=== PATIENT | female | born 2000 | race Caucasian/White ===

== ENCOUNTER 2022-11-12 17:37 | Emergency (ER) | payer BC ==
[~2022-11-12] VITALS: Ht 154.9 cm; Wt 46.2 kg
--- NOTE | 2022-11-12 18:34 | ED General ---
General Chief Complaint: General Problems/Pain Stated Complaint: LOW HEMO Nursing Triage Note: PT AMB TO TRIAGE WITH MOM WITH COMPLAINT OF LOW HGB. STATES WAS SENT BY [facility] FOR FURTHER WORK UP OF LOW HGB, BUT WAS NOT TOLD THE NUMBER. DENIES BLOOD IN STOOL, VOMITING BLOOD. Source of Information: Patient Exam Limitations: No Limitations History of Present Illness Date Seen by Provider: Nov 12, 2022 Time Seen by Provider: 18:30 Initial Comments Patient is a 22-year-old female presents ED with family for low hemoglobin. Patient was seen at [facility] yesterday for a routine checkup. Had lab work drawn. She states she was seen today for a follow-up and was recommended come to ED secondary to low hemoglobin. Patient has no current complaints such as fatigue, weakness, headache, abdominal pain, bloody stools, hematemesis. She is currently on control and states she does not have current menstrual cycles. No evidence of blood loss. No known blood disorders. She denies of any recent infection. Not on any current antibiotic use. History of hemorrhoids however she has no current rectal pain, anal pain or bloody stools. Patient denies fever weakness fatigue, headache, skin color changes Allergies and Home Medications Allergies Coded Allergies: azithromycin (Verified Allergy, Unknown, 11/12/22) oseltamivir (Verified Allergy, Unknown, 11/12/22) Patient Home Medication List Home Medication List Reviewed: Yes Review of Systems Review of Systems Constitutional: No chills, No diaphoresis, No fever, No malaise, No weakness EENTM: No ear pain, No blurred vision, No double vision, No hoarseness, No mouth pain, No mouth swelling Respiratory: No cough Cardiovascular: No palpitations Gastrointestinal: No abdominal pain, No diarrhea, No nausea, No vomiting Genitourinary: No decreased output, No discharge Musculoskeletal: No back pain, No joint pain Skin: No change in color, No change in hair/nails All Other Systems Reviewed Negative Unless Noted: Yes Past Cgufucp-[id number]-[id number] Hx Patient Social History Tobacco Use?: No Use of E-Cig and/or Vaping dev: No Substance use?: No Alcohol Use?: No Pt feels they are or have been: No Physical Exam Vital Signs Vital Signs - First Documented 11/12/22 17:49 Temp 37.4 Pulse 114 Resp 22 B/P (MAP) 144/92 (109) Pulse Ox 100 O2 Delivery Room Air Capillary Refill : Less Than 3 Seconds Height, Weight, BMI Height: '" Weight: lbs. oz. kg; 19.00 BMI Method: General Appearance: No Apparent Distress, WD/WN Eyes: Bilateral Eye Normal Inspection, Bilateral Eye PERRL, Bilateral Eye EOMI HEENT: PERRL/EOMI, TMs Normal, Normal ENT Inspection, Pharynx Normal Neck: Full Range of Motion, Normal Inspection, Non Tender, Supple Respiratory: Chest Non Tender, Lungs Clear, Normal Breath Sounds, No Accessory Muscle Use, No Respiratory Distress Cardiovascular: Regular Rate, Rhythm, No Edema, No Gallop, No JVD, No Murmur Gastrointestinal: Normal Bowel Sounds, No Organomegaly, No Pulsatile Mass, Non Tender Extremity: Normal Capillary Refill, Normal Inspection, Normal Range of Motion, Non Tender Neurologic/Psychiatric: Alert, Oriented x3, No Motor/Sensory Deficits, Normal Mood/Affect, explosive technician II-XII Norm as Tested Skin: Normal Color, Warm/Dry Progress/Results/Core Measures Suspected Sepsis SIRS Temperature: Pulse: 114 Respiratory Rate: 22 Laboratory Tests 11/12/22 18:54: White Blood Count 17.4H Blood Pressure 144 /92 Mean: 109 Laboratory Tests 11/12/22 18:54: Creatinine 0.77, INR Comment 1.0, Platelet Count 629H, Total Bilirubin 0.2 Results/Orders Lab Results Laboratory Tests Test 11/12/22 18:54 Range/Units White Blood Count 17.4 H 4.3-11.0 10^3/uL Red Blood Count 4.19 3.80-5.11 10^6/uL Hemoglobin 6.9 *L 11.5-16.0 g/dL Hematocrit 26 L 35-52 % Mean Corpuscular Volume 62 L 80-99 fL Mean Corpuscular Hemoglobin 16 L 25-34 pg Mean Corpuscular Hemoglobin Concent 27 L 32-36 g/dL Red Cell Distribution Width 20.7 H 10.0-14.5 % Platelet Count 629 H 130-400 10^3/uL Mean Platelet Volume 8.9 L 9.0-12.2 fL Immature Granulocyte % (Auto) 2 % Neutrophils (%) (Auto) 60 42-75 % Lymphocytes (%) (Auto) 21 12-44 % Monocytes (%) (Auto) 7 0-12 % Eosinophils (%) (Auto) 11 H 0-10 % Basophils (%) (Auto) 1 0-10 % Neutrophils # (Auto) 10.4 H 1.8-7.8 10^3/uL Lymphocytes # (Auto) 3.6 1.0-4.0 10^3/uL Monocytes # (Auto) 1.1 H 0.0-1.0 10^3/uL Eosinophils # (Auto) 1.9 H 0.0-0.3 10^3/uL Basophils # (Auto) 0.1 0.0-0.1 10^3/uL Immature Granulocyte # (Auto) 0.3 H 0.0-0.1 10^3/uL Neutrophils % (Manual) 55 % Lymphocytes % (Manual) 19 % Monocytes % (Manual) 7 % Eosinophils % (Manual) 14 % Metamyelocytes % 1 % Band Neutrophils 3 % Nucleated Red Blood Cells 1 Atypical Lymphocytes 1 % Platelet Estimate ELEVATED Percent Immature Platelet Fraction 4.0 0.0-7.6 % Polychromasia SLIGHT Hypochromasia MODERATE Anisocytosis SLIGHT Microcytosis SLIGHT Absolute Reticulocyte Count 140 H 24-90 10e9/uL Percent Reticulocyte Count 3.31 H 0.50-2.40 % Prothrombin Time 13.7 12.2-14.7 SEC INR Comment 1.0 0.8-1.4 Activated Partial Thromboplast Time 26 24-35 SEC Sodium Level 139 135-145 MMOL/L Potassium Level 3.6 3.6-5.0 MMOL/L Chloride Level 105 98-107 MMOL/L Carbon Dioxide Level 20 L 21-32 MMOL/L Anion Gap 14 5-14 MMOL/L Blood Urea Nitrogen 6 L 7-18 MG/DL Creatinine 0.77 0.60-1.30 MG/DL Estimat Glomerular Filtration Rate 110 BUN/Creatinine Ratio 8 Glucose Level 115 H 70-105 MG/DL Calcium Level 9.5 8.5-10.1 MG/DL Corrected Calcium 9.4 8.5-10.1 MG/DL Iron Level 24 L 33-167 ug/dL Total Iron Binding Capacity 418 H 237-330 ug/dL Unsaturated Iron Binding Capacity 394 25-500 ug/dL Transferrin % Saturation 6 L 17-57 % Ferritin 6.0 L 20.0-177.0 ng/mL Total Bilirubin 0.2 0.1-1.0 MG/DL Aspartate Amino Transf (AST/SGOT) 23 5-34 U/L Alanine Aminotransferase (ALT/SGPT) 15 0-55 U/L Alkaline Phosphatase 80 40-136 U/L Lactate Dehydrogenase 269 H 125-220 U/L Total Protein 8.1 6.4-8.2 GM/DL Albumin 4.1 3.2-4.5 GM/DL Thyroid Stimulating Hormone (TSH) 2.54 0.35-4.94 UIU/ML My Orders Orders - VALERIA WILSON Cbc With Automated Diff (11/12/22 17:54) Comprehensive Metabolic Panel (11/12/22 17:54) Partial Thromboplastin Time (11/12/22 17:54) Protime With Inr (11/12/22 17:54) Iron Tibc %Sat & Ferritin (11/12/22 18:30) Type And Screen (11/12/22 19:13) Red Cells Leukocytes Reduced (11/12/22 19:13) Smear For Path Review (11/12/22 18:54) Thyroid Stimulating Hormone (11/12/22 20:35) LDH (11/12/22 20:35) Lorazepam Tablet (Ativan Tablet) (11/12/22 21:00) Ns (Ivpb) (Sodium Chloride 0.9%) (11/12/22 21:09) Medications Given in ED Vital Signs/I&O 11/12/22 11/12/22 11/12/22 11/12/22 17:49 22:02 22:07 22:12 Temp 37.4 36.9 37.1 37.1 Pulse 114 104 102 101 Resp 22 18 16 16 B/P (MAP) 144/92 (109) 131/94 130/91 136/92 Pulse Ox 100 99 100 99 O2 Delivery Room Air Room Air Room Air Room Air 11/12/22 11/12/22 11/12/22 22:17 23:35 23:40 Temp 37.0 37.0 37.0 Pulse 106 102 102 Resp 16 16 16 B/P (MAP) 123/86 131/72 131/85 Pulse Ox 100 100 100 O2 Delivery Room Air Room Air Room Air Capillary Refill : Less Than 3 Seconds Blood Pressure Mean: 109 Departure Communication (PCP) Patient is a 22-year-old female with history of mental health who presents to the ED with family concerning for anemia. Patient was sent over from [facility] secondary to low hemoglobin level of 6.8. Patient has no current complaints of dizziness, lightheadedness, paleness, decreased energy levels, shortness of breath, recent URI. She denies of any dark tarry stools. History of hemorrhoids but denies of any bloody stools. Patient states she does not eat as well. Concerning for a component of anorexia. She does have a thin build and weight of 46.2 kg. No known family history of severe anemia. Due to current complaint CBC, coags, CMP, iron level was ordered. Added a LDH and TSH. She states she does eat but at low amounts. Hemoglobin 6.9, MCV 62, RDW 20, platelets 629, white blood count 17. Elevated neutrophil, eosinophil, monocytes. Coags unremarkable. Chemistry grossly unremarkable. LDH 269. Iron levels currently pending. Due to the abnormal lab work hematology Dr. Kilpatrick was contacted. Dr. Kilpatrick Unsure of the elevated white blood count but believes the platelets are reactive. Discussed with Dr. Kilpatrick that she has no active bleeding. Concerning for iron deficiency anemia. Due to other potential etiologies such as hemolytic anemia, autoimmune processes. Pathology report was initiated per Dr. Kilpatrick. Recommended 1 unit of blood and no iron supplements until iron levels return. She has no recent URI, infection suggesting infectious etiology. Normal thyroid. No evidence suggesting GI bleed. She is currently asymptomatic. She does not appear jaundiced. No alcohol or drug use. Discussed all results with patient and family. They agreed to proceed with a blood transfusion. Consent was provided. It is recommend to follow-up the primary care physician for the results of the iron studies in the next 1 to 2 days with pathology report. Discussed ways to im prove her eating and other supplements to take daily so she is getting certain minerals, electrolytes, etc.. Return precautions were discussed with family such as weakness,, fatigue, lethargy, dyspnea on exertion, palpitations, mucosal pallor. concern for iron deficiency anemia. Vital signs stable but slightly tachycardic.. Tolerated blood products Impression Primary Impression: Anemia Disposition: 01 HOME, SELF-CARE Condition: Stable Departure-Patient Inst. Decision time for Depature: 21:44 Referrals: NO,LOCAL PHYSICIAN (PCP) Primary Care Physician [facility] [place] Patient Instructions: Anemia, Likely Due to Low Iron, Child ED Add. Discharge Instructions: Need to follow-up with your primary care physician in the next 1 to 2 days at [facility] regarding today's results for further evaluation. Need additional lab work to determine treatment. Primary care will need to get the pathology report to determine further work-up. All discharge instructions reviewed with patient and/or family. Voiced understanding. VALERIA WILSON Nov 12, 2022 18:34
[2022-11-12 18:59] LABS: BASOPHILS # (AUTO) 0.1 10^3/uL (0.0-0.1); BASOPHILS % (AUTO) 1 % (0-10); EOSINOPHILS # (AUTO) 1.9 10^3/uL (0.0-0.3); EOSINOPHILS % (AUTO) 11 % (0-10); HEMATOCRIT 26 % (35-52); LYMPHOCYTES # (AUTO) 3.6 10^3/uL (1.0-4.0); LYMPHOCYTES % (AUTO) 21 % (12-44); MEAN CORPUSCULAR HGB CONC 27 g/dL (32-36); MEAN CORPUSCULAR VOLUME 62 fL (80-99); MEAN PLATELET VOLUME 8.9 fL (9.0-12.2); MONOCYTES # (AUTO) 1.1 10^3/uL (0.0-1.0); MONOCYTES % (AUTO) 7 % (0-12); NEUTROPHILS # (AUTO) 10.4 10^3/uL (1.8-7.8); NEUTROPHILS % (AUTO) 60 % (42-75); PLATELET COUNT 629 10^3/uL (130-400); WHITE BLOOD COUNT 17.4 10^3/uL (4.3-11.0)
[2022-11-12 19:07] LABS: HEMOGLOBIN 6.9 g/dL (11.5-16.0); MEAN CORPUSCULAR HEMOGLOBIN 16 pg (25-34)
[2022-11-12 19:19] LABS: PROTHROMBIN TIME PATIENT 13.7 SEC (12.2-14.7)
[2022-11-12 19:27] LABS: ALBUMIN 4.1 GM/DL (3.2-4.5); BILIRUBIN,TOTAL 0.2 MG/DL (0.1-1.0); CALCIUM 9.5 MG/DL (8.5-10.1); CREATININE SERUM 0.77 MG/DL (0.60-1.30); POTASSIUM 3.6 MMOL/L (3.6-5.0); TOTAL PROTEIN 8.1 GM/DL (6.4-8.2)
[2022-11-12 19:31] LABS: ATYPICAL LYMPHOCYTES 1 %; BAND NEUTROPHILS 3 %; EOSINOPHILS % (MANUAL) 14 %; LYMPHOCYTES % (MANUAL) 19 %; METAMYELOCYTES % 1 %; MONOCYTES % (MANUAL) 7 %; NEUTROPHILS % (MANUAL) 55 %
[2022-11-12 19:32] LABS: ANISOCYTOSIS SLIGHT; HYPOCHROMASIA MODERATE; MICROCYTOSIS SLIGHT; NUCLEATED RED BLOOD CELLS 1; PLATELET ESTIMATE ELEVATED; POLYCHROMASIA SLIGHT
[2022-11-12 20:35] LABS: ABSOLUTE RETIC # 140 10e9/uL (24-90); RETICULOCYTE % 3.31 % (0.50-2.40)
[2022-11-12] MEDS ORDERED: LORazepam 0.5 MG (ATIVAN) TABLET PO ONE (21:00)
[2022-11-12] MEDS ORDERED: NS (IVPB) 250 ML ONE (21:09)
[2022-11-12 22:02] VITALS: BP 131/94
[2022-11-12 22:07] VITALS: BP 130/91
[2022-11-12 22:12] VITALS: BP 136/92
[2022-11-12 22:17] VITALS: BP 123/86
[2022-11-12 23:35] VITALS: BP 131/72
[2022-11-12 23:40] VITALS: BP 131/85
== END 2022-11-12 23:40 | disposition home or self-care (01) ==
LOC: EDUNIT# 17:37 → ER 17:41
DX: D64.9 Anemia, unspecified (principal)
CPT/HCPCS: 80053; 82728; 83540; 83550; 83615; 84443; 85007; 85027; 85045; 85055; 85610; 85730; 86850; 86900; 86901; 86920; 99284; P9016; 36415